=== PATIENT | male | born 1980 | race Caucasian/White ===

== ENCOUNTER 2016-09-21 19:09 | Emergency (ER) | payer BC ==
[2016-09-21] MEDS ORDERED: METHYLPREDNISOLONE INJ 125 MG/2 ML SDV IV ONE (19:42)
[2016-09-21] MEDS ORDERED: VALACYCLOVIR HCL 500 MG TABLET PO ONE (19:42)
--- NOTE | 2016-09-21 19:46 | ER Document Report ---
ED Neuro Symptoms/Deficit - General Information source: Patient - HPI Patient complains to provider of: Vision Changes, Other - see above Onset: This afternoon Symptoms are: Constant Baseline Cognitive: Alert, oriented X 3 Baseline Gait: Walks w/o assistance Alert To: Name/Voice Patient Orientation: Person, Place, Time, Events Associated symptoms: Other - see above <VANCE YEPEZ - Last Filed: 09/22/16 02:18> <FERNANDO VARELA - Last Filed: 09/22/16 03:18> - General Stated Complaint: STROKE LIKE SYMPTOMS Notes: 36 year old male with history of a TBI and right brain aneurysm at age 14 presents to the ED complaining of left side blurry vision and mouth tightening that started earlier this afternoon. Patient states that he has noticed that his left eye does not blink at the same rate as his right eye. Patient states that he has had right tooth pain for some time and expresses concern that associated swelling could be causing the neuro symptoms that he is having. Patient denies having any exposure to any ticks and states that he is undergoing a normal amount of stress. 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 -: Yes All other systems reviewed and negative <VANCE YEPEZ - Last Filed: 09/22/16 02:18> Physical Exam - General General appearance: Alert In distress: None - HEENT Head: Normocephalic, Atraumatic, Other - Can't lift left eyebrow. See neuro exam Eyes: Other - difficulty closing left eye. No: Normal Extraocular movements intact: Yes Pupils: PERRL - Respiratory Respiratory status: No respiratory distress Breath sounds: Normal - Cardiovascular Rhythm: Regular Heart sounds: Normal auscultation - Abdominal Inspection: Normal - Back Back: Normal - Extremities General upper extremity: Normal inspection, Normal ROM General lower extremity: Normal inspection, Normal ROM - Neurological Neuro grossly intact: Yes Cognition: Normal Orientation: AAOx4 [place] Coma Scale Eye Opening: Spontaneous [place] Coma Scale Verbal: Oriented [place] Coma Scale Motor: Obeys Commands Sreekanth Coma Scale Total: 15 Speech: Normal Cranial nerves: Facial palsy - left side Motor strength normal: LUE, RUE, LLE, RLE Sensory: Other - left face numbness. No: Normal - Psychological Associated symptoms: Normal affect, Normal mood - Skin Skin Temperature: Warm Skin Moisture: Dry Skin Color: Normal <VANCE YEPEZ - Last Filed: 09/22/16 02:18> <FERNANDO VARELA - Last Filed: 09/22/16 03:18> - Vital signs Vitals: Temp Resp Pulse Ox 97.5 F 17 95 09/21/16 19:44 09/21/16 19:44 09/21/16 19:44 Temp Resp Pulse Ox 97.5 F 17 95 09/21/16 19:44 09/21/16 19:44 09/21/16 19:44 (VANCE YEPEZ) (FERNANDO VARELA) Course - Laboratory Result Diagrams: 09/21/16 19:50 09/21/16 19:50 <VANCE YEPEZ - Last Filed: 09/22/16 02:18> - Laboratory Result Diagrams: 09/21/16 19:50 09/21/16 19:50 - Diagnostic Test Radiology reviewed: Reports reviewed - EKG Interpretation by Ri EKG shows normal: Sinus rhythm Rate: Normal Rhythm: NSR <FERNANDO VARELA - Last Filed: 09/22/16 03:18> - Re-evaluation Re-evalutation: 09/21 Patient with no acute findings on blood work or MRI for some sinusitis. Patient with Hester's palsy. He'll be treated with Valtrex and prednisone. He' ll be given pain medication and switched to Augmentin for sinusitis. Stable for discharge. Return if any worsening or concerning symptoms. Understands agrees with plan. Patient has also been given erythromycin and an eye patch for his left eye. (FERNANDO VARELA) - Vital Signs Vital signs: Temp Pulse Resp BP Pulse Ox 97.8 F 84 18 130/88 H 97 09/22/16 00:38 09/22/16 00:38 09/22/16 00:38 09/22/16 00:38 09/22/16 00:38 (FERNANDO VARELA) - Laboratory Laboratory results interpreted by me: 09/21/16 09/21/16 19:50 19:50 WBC 13.1 H Absolute Neutrophils 9.4 H Carbon Dioxide 31 H BUN 23 H Creatine Kinase 272 H (FERNANDO VARELA) Discharge <VANCE YEPEZ - Last Filed: 09/22/16 02:18> <FERNANDO VARELA - Last Filed: 09/22/16 03:18> - Discharge Clinical Impression: Hester's palsy, Toothache Sinusitis Qualifiers: Sinusitis location: unspecified location Chronicity: unspecified Qualified Code (s): J32.9 - Chronic sinusitis, unspecified Condition: Stable Disposition: HOME, SELF-CARE Instructions: Hester's Palsy ([facility]), Sinusitis ([facility]), Toothache ([facility]) Prescriptions: Amox Tr/Potassium Clavulanate [Augmentin 875-125 Tablet] 1 tab PO BID 10 Days Oxycodone HCl/Acetaminophen [Percocet 5-325 mg Tablet] 1 - 2 tab PO Q4H PRN #20 tablet PRN Reason: Prednisone 40 mg PO DAILY #12 tablet Valacyclovir HCl [Valtrex 500 Mg Tablet] 1,000 mg PO TID #30 tablet Forms: Elevated Blood Pressure, Return to Work Scribe Attestation: 09/22/16 03:18 I personally performed the services described in the documentation, reviewed and edited the documentation which was dictated to the scribe in my presence, and it accurately records my words and actions. (FERNANDO VARELA) Scribe Documentation - Scribe Written by Scribe:: Juan Arboleda, 09/21/2016 20:30 acting as scribe for :: Uma <VANCE YEPEZ - Last Filed: 09/22/16 02:18>
[2016-09-21 20:09] LABS: ABSOLUTE BASOPHILS # (AUTO) 0.1 10^3/uL (0.0-0.2); ABSOLUTE EOSINOPHILS # (AUTO) 0.1 10^3/uL (0.0-0.6); ABSOLUTE LYMPHOCYTES (AUTO) 2.2 10^3/uL (0.5-4.7); ABSOLUTE MONOCYTES (AUTO) 1.4 10^3/uL (0.1-1.4); ABSOLUTE NEUT (AUTO) 9.4 10^3/uL (1.7-8.2); BASOPHILS % (AUTO) 0.5 % (0-2); EOSINOPHILS % (AUTO) 0.8 % (0-6); HEMATOCRIT 45.8 % (37.9-51.0); HEMOGLOBIN 14.9 g/dL (13.5-17.0); HGB HCT DIFFERENCE -1.1; LYMPHOCYTES % (AUTO) 16.9 % (13-45); MEAN CORPUSCULAR HEMOGLOBIN 30.9 pg (27.0-33.4); MEAN CORPUSCULAR HGB CONC 32.5 g/dL (32.0-36.0); MEAN CORPUSCULAR VOLUME 95 fl (80-97); MONOCYTES % (AUTO) 10.3 % (3-13); RED BLOOD COUNT 4.81 10^6/uL (4.35-5.55); RED CELL DISTRIBUTION WIDTH 13.3 % (11.5-14.0); SEGMENTED NEUTROPHILS % (AUTO) 71.5 % (42-78); WHITE BLOOD COUNT 13.1 10^3/uL (4.0-10.5)
[2016-09-21 20:21] LABS: PARTIAL THROMBOPLASTIN TIME 28.6 SEC (23.5-35.8); PROTHROMBIN TIME 12.1 SEC (11.4-15.4)
[2016-09-21 20:30] LABS: ALANINE AMINOTRANSFERASE 43 U/L (21-72); ALBUMIN 4.3 g/dL (3.5-5.0); ALKALINE PHOSPHATASE 73 U/L (38-126); ANION GAP 11 (5-19); ASPARTATE AMINO TRANSFERASE 34 U/L (17-59); BILIRUBIN,TOTAL 0.6 mg/dL (0.2-1.3); BLOOD UREA NITROGEN 23 mg/dL (7-20); CALCIUM 10.2 mg/dL (8.4-10.2); CARBON DIOXIDE 31 mmol/L (22-30); CHLORIDE 103 mmol/L (98-107); CREATINE KINASE 272 U/L (55-170); CREATININE RESULT 1.05 mg/dL (0.52-1.25); GLUCOSE 82 mg/dL (75-110); POTASSIUM 4.3 mmol/L (3.6-5.0); SODIUM 144.8 mmol/L (137-145); TOTAL PROTEIN 7.8 g/dL (6.3-8.2)
[2016-09-21 20:41] LABS: CREATINE KINASE MB 4.29 ng/mL (<4.55)
[2016-09-21 20:42] LABS: TROPONIN I < 0.012 ng/mL
[2016-09-21] MEDS ORDERED: MORPHINE SULFATE 10 MG/ML INJ IV ONE (21:10)
[2016-09-21] MEDS ORDERED: ONDANSETRON ODT 4 MG TAB (6 TAB/DSPK) PO PRN (23:50)
[2016-09-21] MEDS ORDERED: HYDROCODONE/ACETAMINOPHEN 5-325 MG 6 TAB/DSPK PO PRN (23:50)
[2016-09-22] MEDS: ERYTHROMYCIN 0.5% OPH OINTMENT 3.5 GM (ER DISP) OP PRN ×2 (00:35→00:47)
[2016-09-22 00:37] VITALS: BP 130/88
--- NOTE | 2016-09-22 12:56 | EKG REPORT ---
SEVERITY:- ABNORMAL ECG - SINUS RHYTHM BORDERLINE LEFT AXIS DEVIATION CONSIDER ANTEROSEPTAL INFARCT : Confirmed by: Luh Kaur MD 22-Sep-2016 12:54:51
[2016-09-24 03:33] LABS: LYME DISEASE IGG AND IGM AB <0.91 ISR (0.00-0.90)
== END 2016-09-22 00:45 | disposition home or self-care (01) ==
LOC: ER 19:09
DX: G51.0 Bell's palsy (principal); H53.8 Other visual disturbances; J32.9 Chronic sinusitis, unspecified; K08.89 Other specified disorders of teeth and supporting structures; Z87.820 Personal history of traumatic brain injury
CPT/HCPCS: 93005; 99285; 96374; 96375; 36415; 82553; 82550; 85025; 85610; 85730; 80053; 84484; 86618 ×2; 86617 ×2; 70551; 70544; 71010; 70450; 93010; J2930; J2270

== ENCOUNTER 2018-04-28 07:27 | Emergency (ER) | payer SELFPAY ==
[2018-04-28] MEDS ORDERED: IBUPROFEN 800 MG TABLET PO ONE (08:25)
--- NOTE | 2018-04-28 08:26 | ER Document Report ---
ED GI/ - General Chief Complaint: Scrotal Pain, Acute Onset Stated Complaint: GENITAL PAIN Time Seen by Provider: 04/28/18 08:13 Notes: 37-year-old male to the emergency department chief complaint of left testicle pain. Patient states that it is hurting him for the last couple of days. Not getting better. Denies any urethral discharge. No burning with urination. No flank pain. No trauma. TRAVEL OUTSIDE OF THE [place] IN LAST 30 DAYS: No - HPI Patient complains to provider of: Testicular pain Onset: Yesterday Timing/Duration: Gradual, Worse Quality of pain: Achy, Throbbing Severity at maximum: Moderate Severity in ED: Moderate Pain Level: 3 - Related Data Allergies/Adverse Reactions: No Known Allergies Allergy (Verified 09/21/16 20:35) Past Medical History - General Information source: Patient - Social History Smoking Status: Current Every Day Smoker Chew tobacco use (# tins/day): No Frequency of alcohol use: Occasional Drug Abuse: None Lives with: Spouse/Significant other Family History: Reviewed & Not Pertinent Patient has suicidal ideation: No Patient has homicidal ideation: No - Medical History Medical History: Negative Renal/ Medical History: Denies: Hx Peritoneal Dialysis Psychiatric Medical History: Reports: Hx Attention Deficit Hyperactivity Disorder Past Surgical History: Reports: Hx Vascular Surgery - brain - Immunizations Hx Diphtheria, Pertussis, Tetanus Vaccination: Yes Review of Systems - Review of Systems Notes: Constitutional: denies: Chills, Diaphoresis, Fever, Malaise, Weakness EENT: denies: Eye discharge, Blurred vision, Tearing, Double vision, Nose congestion, Nose discharge, Throat swelling, Mouth pain Cardiovascular: denies: Palpitations, Heart racing, Orthopnea, Dyspnea, Chest pain Respiratory: denies: Cough, Hurts to breathe, Wheezing, Shortness of breath Gastrointestinal: denies: Abdominal pain, Diarrhea, Nausea, Vomiting, Black stools, bright red blood in stool Genitourinary: denies: Burning, Dysuria, Discharge, Frequency, Flank pain, Hematuria. Does complain of pain in the left testicle around the epididymis. Musculoskeletal: denies: Joint pain, Joint swelling, Muscle pain, Muscle stiffness, back pain Hematologic/Lymphatic: denies: Anemia, Easy bleeding, Easy bruising, Blood clots Neurological/Psychological: denies: Confusion, Dementia, Depression, Loss of consciousness Skin: No lesions, no masses, no skin breakdown, no abscesses Physical Exam - Vital signs Vitals: Temp Pulse Resp BP Pulse Ox 97.7 F 87 18 132/80 H 99 04/28/18 07:32 04/28/18 07:32 04/28/18 07:32 04/28/18 07:32 04/28/18 07:32 - General General appearance: Appears well, Alert - Respiratory Respiratory status: No respiratory distress Chest status: Nontender Breath sounds: Normal Chest palpation: Normal - Cardiovascular Rhythm: Regular Heart sounds: Normal auscultation Murmur: No - Genitourinary Inspection: Normal Tenderness: Epididymis tender Cremasteric reflex: Normal Scrotum: Normal - Extremities General upper extremity: Normal inspection, Nontender, Normal color, Normal ROM , Normal temperature General lower extremity: Normal inspection, Nontender, Normal color, Normal ROM , Normal temperature, Normal weight bearing. No: Phani's sign - Skin Skin Temperature: Warm Skin Moisture: Dry Skin Color: Normal Course - Re-evaluation Re-evalutation: 04/28/18 09:48 Skin does not appear red or cellulitic. The ultrasound is unremarkable with exception of a small hydrocele. No evidence of torsion or epididymitis. Will recommend symptomatic care with anti-inflammatory medication will give information for urology follow-up needed. 04/28/18 09:52 Laboratory 04/28/18 08:40 Urine Color YELLOW Urine Appearance CLEAR Urine pH 6.0 Ur Specific Mobile 1.021 Urine Protein NEGATIVE Urine Glucose (UA) NEGATIVE Urine Ketones NEGATIVE Urine Blood NEGATIVE Urine Nitrite NEGATIVE Urine Bilirubin NEGATIVE Urine Urobilinogen NEGATIVE Ur Leukocyte Esterase NEGATIVE Urine WBC (Auto) 1 Urine RBC (Auto) 3 Squamous Epi Cells Auto <1 Urine Mucus (Auto) RARE Urine Ascorbic Acid 40 H Scrotum Ultrasound 04/28/18 08:25 IMPRESSION: Left mild hydrocele and varicocele. No evidence of torsion or mass. 04/28/18 11:25 Laboratory 04/28/18 04/28/18 08:40 08:40 Urine Color YELLOW Urine Appearance CLEAR Urine pH 6.0 Ur Specific Mobile 1.021 Urine Protein NEGATIVE Urine Glucose (UA) NEGATIVE Urine Ketones NEGATIVE Urine Blood NEGATIVE Urine Nitrite NEGATIVE Urine Bilirubin NEGATIVE Urine Urobilinogen NEGATIVE Ur Leukocyte Esterase NEGATIVE Urine WBC (Auto) 1 Urine RBC (Auto) 3 Squamous Epi Cells Auto <1 Urine Mucus (Auto) RARE Urine Ascorbic Acid 40 H Chlamydia DNA (PCR) NOT DETECTED N.gonorrhoeae DNA (PCR) NOT DETECTED - Vital Signs Vital signs: Temp Pulse Resp BP Pulse Ox 97.8 F 80 20 137/94 H 96 04/28/18 10:15 04/28/18 10:15 04/28/18 10:15 04/28/18 10:15 04/28/18 10:15 - Laboratory Laboratory results interpreted by me: 04/28/18 08:40 Urine Ascorbic Acid 40 H Discharge - Discharge Clinical Impression: Left varicocele, Hydrocele, left Condition: Good Disposition: HOME, SELF-CARE Instructions: Hydrocele ([facility]) Prescriptions: Ibuprofen [Motrin 800 mg Tablet] 800 mg PO Q8H PRN 10 Days #30 tab PRN Reason: For Pain Scale 3-4 Referrals: [facility] [Provider Group] - Follow up in 1 week
[2018-04-28 09:13] LABS: APPEARANCE,URINE CLEAR; BILIRUBIN,URINE NEGATIVE (NEGATIVE); COLOR,URINE YELLOW; GLUCOSE, URINE NEGATIVE (NEGATIVE); KETONES,URINE NEGATIVE (NEGATIVE); LEUKOCYTE ESTERASE,URINE NEGATIVE (NEGATIVE); NITRITE,URINE NEGATIVE (NEGATIVE); PROTEIN,URINE NEGATIVE (NEGATIVE); URINE SPECIFIC GRAVITY 1.021; UROBILINOGEN,URINE NEGATIVE mg/dL (<2.0)
--- NOTE | 2018-04-28 09:22 | RADIOLOGY REPORT (SQ) ---
EXAM DESCRIPTION: U/S SCROTUM W/DOPPLER COMPLETED DATE/TIME: 04/28/2018 9:11 am REASON FOR STUDY: left testicle pain COMPARISON: None. TECHNIQUE: Static and realtime clay scale imaging of the scrotum and testes. Selected color Doppler and spectral images recorded to document blood flow. LIMITATIONS: None. FINDINGS: RIGHT: TESTICLE: Normal size. Normal echotexture. Normal blood flow. No mass. EPIDIDYMIS: Normal. HYDROCELE OR VARICOCELE: No. HERNIA OR EXTRA-TESTICULAR MASS: No. OTHER: No other significant finding. LEFT: TESTICLE: Normal size. Normal echotexture. Normal blood flow. No mass. EPIDIDYMIS: Normal. HYDROCELE OR VARICOCELE: Mild mobile debris containing hydrocele. There is hyperemia with a varicoce le present. HERNIA OR EXTRA-TESTICULAR MASS: No. OTHER: No other significant finding. IMPRESSION: Left mild hydrocele and varicocele. No evidence of torsion or mass. TECHNICAL DOCUMENTATION: JOB ID: [id number]- All Rights Reserved Reading location - IP/workstation name: [email or web address]
[2018-04-28 10:19] VITALS: BP 137/94
[2018-04-28 10:22] LABS: CHLAM PCR NOT DETECTED (NOT DETECT); GON PCR NOT DETECTED (NOT DETECT)
== END 2018-04-28 10:18 | disposition home or self-care (01) ==
LOC: ER 07:27
DX: I86.1 Scrotal varices (principal); N43.3 Hydrocele, unspecified; N50.82 Scrotal pain; F17.200 Nicotine dependence, unspecified, uncomplicated
CPT/HCPCS: 76870; 81001; 87491; 87591; 93976; 99284